=== PATIENT | female | born 1990 | race African-American/Black ===

== ENCOUNTER 2024-11-24 13:31 | Emergency (ER) | payer BC ==
[2024-11-24 13:37] VITALS: RESP 18; TEMP 99.2; BMI 29.7
[2024-11-24] MEDS ORDERED: ACETYLCYSTEINE 20% 200MG/ML 4 ML VIAL *FOR ORAL / INH USE ONLY ONE (14:07)
[2024-11-24] MEDS ORDERED: ALBUTEROL SO4 0.083% IH SOL 2.5 MG/3 ML VIAL.NEB. NEB ONE (14:08)
[2024-11-24] MEDS ORDERED: ACETAMINOPHEN 325 MG TABLET (FP) ONE (14:08)
[2024-11-24] MEDS: ACETYLCYSTEINE 20% 200MG/ML 30 ML VIAL *FOR ORAL / INH USE ONLY NEB ONE (14:21)
[2024-11-24] MEDS: ACETAMINOPHEN 500 MG TABLET (FP) PO ONE (14:23)
[2024-11-24] MEDS: ALBUTEROL SO4 0.083% IH SOL 2.5 MG/3 ML VIAL.NEB. NEB SCH (15:05)
[2024-11-24] MEDS ORDERED: ALBUTEROL SO4 2.5/IPRATROPIUM 0.5 INH SOL 3 ML VIAL.NEB. NEB ONE ×2 (15:31→15:46)
[2024-11-24] MEDS ORDERED: predniSONE 10 MG TABLET (UD) ONE (15:31)
[2024-11-24] MEDS ORDERED: predniSONE 20 MG TABLET (UD) ONE (15:31)
[2024-11-24] MEDS: predniSONE 20 MG TABLET (UD) PO ONE (15:35)
[2024-11-24] MEDS: ALBUTEROL SO4 2.5/IPRATROPIUM 0.5 INH SOL 3 ML VIAL.NEB. NEB SCH (15:35)
[2024-11-24] MEDS ORDERED: ALBUTEROL SO4 0.083% IH SOL 2.5 MG/3 ML VIAL.NEB. NEB SCH (16:00)
[2024-11-24 16:46] VITALS: BP 119/67; PULSE 112
== END 2024-11-24 16:58 | disposition home or self-care (01) ==
LOC: JER 13:31
PROC: 3E0F7GC Introduction of Other Therapeutic Substance into Respiratory Tract, Via Natural or Artificial Opening (ICD-10-PCS; principal; 2024-11-24)
PROC: 3E0F7GC Introduction of Other Therapeutic Substance into Respiratory Tract, Via Natural or Artificial Opening (ICD-10-PCS; 2024-11-24)
DX: J45.901 Unspecified asthma with (acute) exacerbation (principal); R07.89 Other chest pain; R06.02 Shortness of breath; R05.9 Cough, unspecified; J02.9 Acute pharyngitis, unspecified
CPT/HCPCS: 0241U-QW; 71045-TC-FY; 93005; 93010; 99285-25